=== PATIENT | male | born 1965 ===

== ENCOUNTER 2024-07-12 22:03 | Emergency (ER) | payer SELFPAY ==
[2024-07-12 22:40] LABS: #Basophils 0.06 10x3/uL (0.0-0.2); %Basophils 1.1 % (0.0-1.0); %Eosinophils 0.7 % (0.0-10.0); %Lymphocytes 22.5 % (21.0-51.0); %Monocytes 7.4 % (0.0-10.0); %Neutrophils 67.9 % (42.0-75.0); Hemoglobin 14.2 g/dL (14.0-18.0); Mean Corpuscular HGB CONC 35.5 g/dL (32.0-36.0); Mean Corpuscular Hemoglobin 30.7 pg (27.0-31.0); Mean Corpuscular Volume 86.4 fL (78.0-98.0); Mean Platelet Volume 8.4 fL (7.4-10.4); Platelet Count 210 10x3/uL (130-400); RBC Distribution Width 12.1 % (11.5-14.5); Red Blood Cell (RBC) Count 4.63 mill/uL (4.70-6.10)
[2024-07-12 22:58] LABS: ALT (SGPT) 58 U/L (8-55); AST (SGOT) 55 U/L (5-34); Albumin 4.3 g/dL (3.4-4.8); Alkaline Phosphatase 62 U/L (40-110); Anion Gap 18 mmol/L (10-20); BUN (Urea Nitrogen) 5 mg/dL (8.4-25.7); Bilirubin, Total 0.3 mg/dL (0.2-1.2); Calc. Creatinine Clearance 0 mL/min (70-130); Calcium 8.6 mg/dL (7.8-10.44); Carbon Dioxide 18 mmol/L (23-31); Chloride 105 mmol/L (98-107); Estimated GFR 99; Globulin 3.6 g/dL (2.4-3.5); Glucose 108 mg/dL (80-115); Potassium 4.1 mmol/L (3.5-5.1); Protein, Total 7.9 g/dL (5.8-8.1); Sodium 137 mmol/L (136-145)
[2024-07-12] MEDS ORDERED: Boostrix 0.5 ML (Tdap) VIAL (>/=7 yrs of age) ONE (23:16)
[2024-07-12] MEDS ORDERED: Lidocaine 1% PF 5 ML VIAL ONE (23:17)
== END 2024-07-13 00:45 | disposition home or self-care (01) ==
LOC: ERS 22:03
DX: S01.01XA Laceration without foreign body of scalp, initial encounter (principal); W19.XXXA Unspecified fall, initial encounter; Z23 Encounter for immunization
CPT/HCPCS: 12001; 36415; 70450; 72125; 80053; 85025; 90471; 90715

== ENCOUNTER 2024-07-23 11:13 | Emergency (ER) | payer SELFPAY | END 2024-07-23 11:49 | disposition home or self-care (01) | LOC: ERS 11:13 | DX: S01.01XD Laceration without foreign body of scalp, subsequent encounter (principal); W18.30XD Fall on same level, unspecified, subsequent encounter ==